=== PATIENT | female | born 1950 | race Caucasian/White ===

== ENCOUNTER → 2018-02-28 | Outpatient (CLI) | payer MEDICARE ==
[~2018-02-28] MED LIST: ASPI-630 PO; FISH1CAP PO; GLUCOSAMINE 1,1 EACH PO; LISI-334 PO; MULT-18 PO
--- NOTE | 2018-02-28 13:29 | RAD ---
Thyroid ultrasound 02/28/2018 Clinical indication: Thyroid ultrasound 08/07/2014. Findings: Right lobe of the thyroid measures 4.0 x 1.4 x 1.3 cm. Interval increase in hypoechoic nodule in the inferior right lobe measuring 0.6 x 0.6 x 0.3 cm with internal vascularity, previously 0.4 x 0.2 x 0.4 cm. Left lobe of the thyroid measures 4.0 x 1.0 x 1.2 cm There is no significant change in a tiny cyst in the inferior left lobe measuring up to 0.4 cm, previously up to 0.4 cm. Impression: Slight interval increase in hypoechoic right lobe dominant nodule measuring 0.6 cm. Follow-up thyroid ultrasound in 12 months is recommended.
--- NOTE | 2018-02-28 13:38 | RAD ---
EXAM: Dual energy x-ray absorptiometry (DEXA). 02/28/2018 HISTORY: Post menopausal screening. Comparison: None. TECHNIQUE: Dual energy x-ray absorptiometry of the lumbar spine and right hip was performed. Calculation of bone mineral density based on standard deviations above or below the expected young adult normal value (T-score) was completed. FINDINGS: The average bone mineral density associated with L1-L4 is 1.095 g/cm^2, corresponding with a T-score of -0.7. The average bone mineral density associated with the right femoral neck is 0.749 g/cm^2 corresponding with a T score of -2.1. The average total bone mineral density associated with right hip is 0.818 g/cm^2, corresponding with a T-score of -1.5. Impression: Findings of osteopenia in the right femur. Note: Definitions established by the World Health Organization: 1. Normal: T-score is -1.0 or above the expected mean for a young adult. 2. Osteopenia: T-score is between -1.0 and -2.5. 3. Osteoporosis: T-score is -2.5 or below.
--- NOTE | 2018-02-28 15:41 | RAD ---
DATE: 02/28/2018 EXAM: MAMMO KRISTIE SCREENING BILATERAL HISTORY: Screening Mammogram COMPARISON: Screening mammogram 07/01/2016, 06/02/2015, 11/29/2013 This study was interpreted with the benefit of Computerized Aided Detection (CAD). The breast parenchyma shows scattered fibroglandular densities. Breast parenchyma level B. FINDINGS: Bilateral digital 2-D and 3-D tomosynthesis CC and MLO views. No suspicious mass, calcification or architectural distortion. No significant change from prior examination IMPRESSION: No mammographic evidence of malignancy. Recommend routine screening mammogram in 12 months. BI-RADS CATEGORY: 1 NEGATIVE RECOMMENDED FOLLOW-UP: 12M 12 MONTH FOLLOW-UP PQRS compliance statement: Patient information was entered into a reminder system with a target due date for the next mammogram. Mammography is a sensitive method for finding small breast cancers, but it does not detect them all and is not a substitute for careful clinical examination. A negative mammogram does not negate a clinically suspicious finding and should not result in delay in biopsying a clinically suspicious abnormality. "Our facility is accredited by the [employer] Mamm[employer]."
== END | disposition home or self-care (01) ==
LOC: US 09:43
PROVIDERS: ATTEND Physician Assistant
DX: Z12.31 Encounter for screening mammogram for malignant neoplasm of breast (principal); Z13.820 Encounter for screening for osteoporosis; M85.88 Other specified disorders of bone density and structure, other site; E04.1 Nontoxic single thyroid nodule; I10 Essential (primary) hypertension
CPT/HCPCS: 76536; 77063; 77067; 77080

== ENCOUNTER → 2020-01-17 | Outpatient (CLI) | payer MEDICARE ==
--- NOTE | 2020-01-17 13:44 | RAD ---
History: Routine screening. Technique: Bilateral digital mammographic routine views were obtained with 2-D and 3-D technique including use of CAD - computer aided detection. Comparison: 02/28/2018, 07/01/2016. Findings: Breast Tissue Density B :The breast tissue is composed of mixed fatty and fibroglandular tissue. There are no suspicious masses, microcalcifications or areas of architectural distortion. Impression: Negative mammogram. BI-RADS Category 1: Negative. Normal interval followup. A mammogram does not have 100% sensitivity and therefore a negative imaging study should not delay further work up of a suspicious abnormality. The patient will receive a letter with the results in the mail. Patient information is entered into the reminder system with a target due date for the next screening mammogram. The patient will receive a reminder. "Our facility is accredited by the [employer] Mammography [employer]." BI-RADS 1 -- negative findings (within normal)
== END | disposition home or self-care (01) ==
LOC: MAMMO 08:54
PROVIDERS: ATTEND Physician Assistant
DX: Z12.31 Encounter for screening mammogram for malignant neoplasm of breast (principal)
CPT/HCPCS: 77063; 77067

== ENCOUNTER → 2020-09-03 | Outpatient (CLI) | payer MEDICARE ==
--- NOTE | 2020-09-03 13:07 | RAD ---
Bone mineral density exam History: Postmenopausal Comparison: 02/28/2018 Findings: Bone mineral density examination utilizing DEXA was performed. Left hip bone mineral density of 776 mg/cm2 corresponds with a T score T score -1.5, Z score -0.9. The bone mineral density of the lumbar spine was 1.137 g/cm2 which corresponds with a T-score of -0.4, Z score 0.1. There has been 3.8% increase. By World Congress on Osteoporosis criteria, a T score of 0 to-1 SD is considered to be within normal limits. A T score of -1 to -2.5 SD is considered osteopenia. A T score less than -2.5 SD is considered osteoporosis Impression: 1. There is normal bone density of the lumbar spine. There is osteopenia of the left hip. Electronically signed by: Kody Cosby MD (09/03/2020 1:03 PM) [facility]
== END ==
LOC: DXRAD 09:54
PROVIDERS: ATTEND Physician Assistant
DX: M85.88 Other specified disorders of bone density and structure, other site (principal); Z78.0 Asymptomatic menopausal state
CPT/HCPCS: 77080

== ENCOUNTER → 2021-01-26 | Outpatient (CLI) | payer MEDICARE ==
[~2021-01-26] MED LIST changes: -LISI-334 PO; +LISI20TA18 PO
--- NOTE | 2021-01-26 17:16 | RAD ---
ADDENDUM #1 Addendum: Prior THYROID SONO is available (images from prior exam are not available). Please note given the sub centimeter size of the thyroid nodules follow-up in one year can be considered. Electronically signed by: Zachary Kc MD (01/28/2021 8:48 AM) [id number] ORIGINAL REPORT Examination: Ultrasound thyroid HISTORY: History of nodule follow-up COMPARISON: 02/28/2018 FINDINGS: The right lobe of thyroid gland measures 3.5 x 1.2 x 1.4 cm. The left lobe of the thyroid gland measu res 4.0 x 1.2 x 1.0 cm.There is a 9 mm hypoechoic nodule identified in the right lobe of the thyroid gland. 4 mm hypoechoic nodule left lobe of thyroid gland. The isthmus measures 1.9 mm in AP dimension. IMPRESSION: 1. Subcentimeter thyroid nodules as described above. ACR Ti-RADS: 2. Benign Electronically signed by: Zachary Kc MD (01/26/2021 5:14 PM) [id number]
== END ==
LOC: US 12:36
PROVIDERS: ATTEND Physician Assistant
DX: E04.1 Nontoxic single thyroid nodule (principal)
CPT/HCPCS: 76536

== ENCOUNTER → 2021-07-07 | Outpatient (CLI) | payer MEDICARE ==
--- NOTE | 2021-07-07 10:30 | RAD ---
EXAM: Bilateral digital screening mammogram with tomosynthesis. HISTORY: 71-year-old female presents for screening mammography. TECHNIQUE: Full-field digital craniocaudal and mediolateral oblique 2D and 3D tomosynthesis images of both breasts are obtained for evaluation. Computer aided detection was applied. COMPARISON: 01/17/2020 BREAST PARENCHYMAL DENSITY: Level B - Scattered fibroglandular densities. FINDINGS: There is no new suspicious mass, microcalcification or region of architectural distortion. There are stable benign areas of asymmetry and nodularity within both breasts. IMPRESSION: BI-RADS Category 2: Benign finding(s). RECOMMENDATION: Annual mammography is recommended. If your mammogram demonstrates that you have dense breast tissue, which could hide abnormalities, and if you have other risk factors for breast cancer that have been identified, you might benefit from s upplemental screening tests that may be suggested by your ordering physician. Dense breast tissue, i n and of itself, is a relatively common condition. This information is not provided to cause undue c oncern, but rather to raise your awareness and to promote discussion with your physician regarding th e presence of other risk factors, in addition to dense breast tissue. A report of your mammography re sults will be sent to you and your physician. You should contact your physician if you have any ques tions or concerns regarding this report. Mammography is a sensitive method for finding small breast cancers, but it does not detect them all a nd is not a substitute for careful clinical examination. A negative mammogram does not negate a clin ically suspicious finding and should not result in delay in biopsying a clinically suspicious abnorma lity. PQRS compliance statement - Patient information was entered into a reminder system with a target due date for the next mammogram. "Our facility is accredited by the [employer] Mammography [employer]." Electronically signed by: Génesis Merrill MD (07/07/2021 10:28 AM) [id number]
== END ==
LOC: MAMMO 08:34
PROVIDERS: ATTEND Physician Assistant
DX: Z12.31 Encounter for screening mammogram for malignant neoplasm of breast (principal)
CPT/HCPCS: 77063; 77067